=== PATIENT | female | born 1930 | race Caucasian/White ===

== ENCOUNTER 2016-12-26 06:58 | Emergency (ER) | payer MEDICARE, BC ==
[2016-12-26] MEDS ORDERED: DIPHENHYDRAMINE HCL 25 MG CAPSULE PO ONE (07:19)
--- NOTE | 2016-12-26 07:23 | ER Document Report ---
ED General - General Chief Complaint: Breathing Difficulty Stated Complaint: DIFFICULTY BREATHING Time Seen by Provider: 12/26/16 07:05 Mode of Arrival: Medic Information source: Patient, Relative Notes: 86-year-old female history of anxiety with no respiratory issues presents with complaints of family with concerns of wheezing over the past 3 days. Patient has been taken off her anxiety medication. Patient denies any fevers or chills nausea vomiting or diarrhea. Patient has a history of vertigo and has chronic dizziness and headache. - HPI Onset: Other - 3 day duration Onset/Duration: Persistent Quality of pain: No pain Severity: Mild Pain Level: Denies Associated symptoms: Other Exacerbated by: Denies Relieved by: Denies Similar symptoms previously: No Recently seen / treated by doctor: Yes Past Medical History - Social History Smoking Status: Never Smoker Cigarette use (# per day): No Chew tobacco use (# tins/day): No Smoking Education Provided: No Family History: Reviewed & Not Pertinent Review of Systems - Review of Systems Notes: REVIEW OF SYSTEMS: CONSTITUTIONAL : Denies fever, chills, or sweats. Denies recent illness. EENT: Denies eye, ear, throat, or mouth pain or symptoms. Denies nasal or sinus congestion or discharge. Denies throat, tongue, or mouth swelling or difficulty swallowing. CARDIOVASCULAR: Denies chest pain. Denies palpitations or racing or irregular heart beat. Denies ankle edema. RESPIRATORY: Difficulty breathing GASTROINTESTINAL: Denies abdominal pain or distention. Denies nausea, vomiting , or diarrhea. Denies blood in vomitus, stools, or per rectum. Denies black, tarry stools. Denies constipation. GENITOURINARY: Denies difficulty urinating, painful urination, burning, frequency, blood in urine, or discharge. FEMALE GENITOURINARY: Denies vaginal bleeding, heavy or abnormal periods, irregular periods. Denies vaginal discharge or odor. MUSCULOSKELETAL: Denies back or neck pain or stiffness. Denies joint pain or swelling. SKIN: Denies rash, lesions or sores. HEMATOLOGIC : Denies easy bruising or bleeding. LYMPHATIC: Denies swollen, enlarged glands. NEUROLOGICAL: Denies confusion or altered mental status. Denies passing out or loss of consciousness. Denies dizziness or lightheadedness. Denies headache. Denies weakness or paralysis or loss of use of either side. Denies problems with gait or speech. Denies sensory loss, numbness, or tingling. Denies seizures. PSYCHIATRIC: Admits to anxiety ALL OTHER SYSTEMS REVIEWED AND NEGATIVE. PHYSICAL EXAMINATION: GENERAL: Well-appearing, well-nourished and in no acute distress. HEAD: Atraumatic, normocephalic. EYES: Pupils equal round and reactive to light, extraocular movements intact, conjunctiva are normal. ENT: Nares patent, oropharynx clear without exudates. Moist mucous membranes. NECK: Upper airway wheezing noted there is no stridor LUNGS: Breath sounds clear to auscultation bilaterally and equal. No wheezes rales or rhonchi. HEART: Regular rate and rhythm without murmurs ABDOMEN: Soft, nontender, nondistended abdomen. No guarding, no rebound. No masses appreciated. Female : deferred Musculoskeletal: Normal range of motion, no pitting or edema. No cyanosis. NEUROLOGICAL: Cranial nerves grossly intact. Normal speech, normal gait. Normal sensory, motor exams PSYCH: Anxious SKIN: Warm, Dry, normal turgor, no rashes or lesions noted. Dictation was performed using [employer] voice recognition software Physical Exam - Vital signs Vitals: Pulse Ox 100 12/26/16 07:03 Course - Re-evaluation Re-evalutation: 12/26/16 07:23 Dyspnea working up pending however this appears to be more anxiety related 12/26/16 08:16 pt has a hx of double bypass 2008, trop 12/26/16 08:[address] [place] , he notes cardiac enlargement no acute abnormality 12/26/16 08:57 [facility] paged no beds available 12/26/16 08:59 [facility] paged , waiting list 12/26/16 09:02 [facility] paged 12/26/16 09:[address] Buck who will accept on behalf of dr nunez - Vital Signs Vital signs: Temp Pulse Resp BP Pulse Ox 25 H 152/63 H 98 12/26/16 08:01 12/26/16 08:01 12/26/16 08:21 - Laboratory Result Diagrams: 12/26/16 07:30 12/26/16 07:30 Laboratory results interpreted by me: 12/26/16 12/26/16 12/26/16 07:30 07:30 07:30 RBC 3.52 L Hgb 9.3 L Hct 28.3 L MCH 26.4 L RDW 17.6 H Seg Neutrophils % 86.4 H Lymphocytes % 7.8 L APTT Sodium 130.9 L Potassium 5.3 H Chloride 97 L Carbon Dioxide 20 L BUN 23 H Est GFR ( Amer) 54 L Est GFR (Non-Af Amer) 45 L Glucose 304 H CK-MB (CK-2) 8.54 H NT-Pro-B Natriuret Pep 74304 H Urine Protein Urine Glucose (UA) Urine Ketones Urine Ascorbic Acid 12/26/16 12/26/16 07:30 07:54 RBC Hgb Hct MCH RDW Seg Neutrophils % Lymphocytes % APTT 36.0 H Sodium Potassium Chloride Carbon Dioxide BUN Est GFR ( Amer) Est GFR (Non-Af Amer) Glucose CK-MB (CK-2) NT-Pro-B Natriuret Pep Urine Protein 100 H Urine Glucose (UA) 50 H Urine Ketones 20 H Urine Ascorbic Acid 40 H Critical Care Note - Critical Care Note Total time excluding time spent on procedures (mins): 44 Comments: 44 minutes of critical care time spent in direct contact evaluating and reevaluating the patient, treating symptoms, reviewing labs and studies and speaking with family and consultants excluding any procedures Discharge - Discharge Clinical Impression: NSTEMI (non-ST elevated myocardial infarction) Condition: Stable Disposition: [facility]
[2016-12-26 07:37] LABS: VENOUS BLOOD BASE EXCESS -3.3 mmol/L; VENOUS BLOOD HCO3 21.2 mmol/L (20-32); VENOUS BLOOD PCO2 36.3 mmHg (35-63); VENOUS BLOOD PH 7.39 (7.30-7.42)
[2016-12-26 07:40] LABS: ABSOLUTE LYMPHOCYTES (AUTO) 0.7 10^3/uL (0.5-4.7); ABSOLUTE MONOCYTES (AUTO) 0.5 10^3/uL (0.1-1.4); ABSOLUTE NEUT (AUTO) 8.1 10^3/uL (1.7-8.2); BASOPHILS % (AUTO) 0.2 % (0-2); HEMATOCRIT 28.3 % (36.0-47.0); HEMOGLOBIN 9.3 g/dL (12.0-15.5); HGB HCT DIFFERENCE -0.4; LYMPHOCYTES % (AUTO) 7.8 % (13-45); MEAN CORPUSCULAR HEMOGLOBIN 26.4 pg (27.0-33.4); MEAN CORPUSCULAR HGB CONC 32.8 g/dL (32.0-36.0); MEAN CORPUSCULAR VOLUME 81 fl (80-97); MONOCYTES % (AUTO) 5.6 % (3-13); RED BLOOD COUNT 3.52 10^6/uL (3.72-5.28); RED CELL DISTRIBUTION WIDTH 17.6 % (11.5-14.0); SEGMENTED NEUTROPHILS % (AUTO) 86.4 % (42-78); WHITE BLOOD COUNT 9.4 10^3/uL (4.0-10.5)
[2016-12-26 07:49] LABS: ALANINE AMINOTRANSFERASE 30 U/L (9-52); ALKALINE PHOSPHATASE 84 U/L (38-126); ANION GAP 14 (5-19); ASPARTATE AMINO TRANSFERASE 32 U/L (14-36); BILIRUBIN,DIRECT 0.4 mg/dL (0.0-0.4); BILIRUBIN,TOTAL 0.6 mg/dL (0.2-1.3); BLOOD UREA NITROGEN 23 mg/dL (7-20); CALCIUM 9.4 mg/dL (8.4-10.2); CARBON DIOXIDE 20 mmol/L (22-30); CHLORIDE 97 mmol/L (98-107); CREATINE KINASE 124 U/L (30-135); CREATININE RESULT 1.15 mg/dL (0.52-1.25); GLUCOSE 304 mg/dL (75-110); POTASSIUM 5.3 mmol/L (3.6-5.0); SODIUM 130.9 mmol/L (137-145); TOTAL PROTEIN 6.3 g/dL (6.3-8.2)
[2016-12-26 08:08] LABS: CREATINE KINASE MB 8.54 ng/mL (<4.55)
[2016-12-26 08:12] LABS: TROPONIN I 1.83 ng/mL
[2016-12-26] MEDS ORDERED: HEPARIN SOD (PORCINE) 1,000 UNIT/ML 10 ML VIAL IV PRN (08:14)
[2016-12-26] MEDS ORDERED: HEPARIN SOD (PORCINE) 1,000 UNIT/ML 10 ML VIAL IV ONE ×2 (08:14→09:59)
[2016-12-26] MEDS ORDERED: HEPARIN SODIUM,PORCINE/D5W 25,000 UNIT/250 ML RTUINJ IV PRN (08:14)
[2016-12-26 08:26] LABS: AMORPHOUS SEDIMENT,URINE TRACE /HPF; APPEARANCE,URINE SLIGHTLY-CLOUDY; BILIRUBIN,URINE NEGATIVE (NEGATIVE); GLUCOSE, URINE 50 mg/dL (NEGATIVE); KETONES,URINE 20 mg/dL (NEGATIVE); LEUKOCYTE ESTERASE,URINE NEGATIVE (NEGATIVE); NITRITE,URINE NEGATIVE (NEGATIVE); PROTEIN,URINE 100 mg/dL (NEGATIVE); UROBILINOGEN,URINE NEGATIVE mg/dL (<2.0)
[2016-12-26 08:33] LABS: PROTHROMBIN TIME 14.9 SEC (11.4-15.4)
--- NOTE | 2016-12-26 09:01 | RADIOLOGY REPORT (SQ) ---
EXAM DESCRIPTION: CHEST SINGLE VIEW COMPLETED DATE/TIME: 12/26/2016 7:49 am REASON FOR STUDY: sob COMPARISON: None. NUMBER OF VIEWS: One view. TECHNIQUE: Single frontal radiographic view of the chest acquired. LIMITATIONS: None. FINDINGS: LUNGS AND PLEURA: Mild to moderate diffuse chronic lung change without focal opacities, ma sses or pneumothorax. No pleural effusion. MEDIASTINUM AND HILAR STRUCTURES: No masses. Contour normal. HEART AND VASCULAR STRUCTURES: Mild cardiomegaly. Normal vasculature. Prior CABG. BONES: No acute findings. HARDWARE: CABG hardware. OTHER: No other significant finding. IMPRESSION: NO SIGNIFICANT RADIOGRAPHIC FINDING IN THE CHEST. CHRONIC CHANGES ABOVE. TECHNICAL DOCUMENTATION: JOB ID: [id number] [employer]- All Rights Reserved
[2016-12-26] MEDS ORDERED: ASPIRIN 325 MG TABLET PO ONE (09:26)
[2016-12-26] MEDS ORDERED: ONDANSETRON HCL INJ/PF 4 MG/2 ML SDV IV ONE (09:34)
[2016-12-26] MEDS ORDERED: FUROSEMIDE INJ/PF 40 MG/4 ML SDV IV ONE (11:45)
[2016-12-26 12:43] VITALS: BP 121/89
--- NOTE | 2016-12-27 07:58 | EKG REPORT ---
SEVERITY:- ABNORMAL ECG - SINUS OR ECTOPIC ATRIAL RHYTHM FIRST DEGREE AV BLOCK NONSPECIFIC INTRAVENTRICULAR CONDUCTION DELAY ABNRM R PROG, CONSIDER ASMI OR LEAD PLACEMENT BORDERLINE ST DEPRESSION, DIFFUSE LEADS : Confirmed by: Mohan Cornejo MD 27-Dec-2016 07:57:09
== END 2016-12-26 13:12 | disposition short-term general hospital (02) ==
LOC: ER 06:58
DX: I21.4 Non-ST elevation (NSTEMI) myocardial infarction (principal)
CPT/HCPCS: 93005; 94640; 99291; 51702; 96374; 96375; 36415; 87040; 82553; 82962; 82550; 85025; 85610; 85730; 82272; 80053; 81001; 84484; 82803; 83880; 71010; 93010; J1644 ×2; A9270; J1940; J2405